=== PATIENT | female | born 1995 | race Caucasian/White ===

== ENCOUNTER 2024-06-21 18:29 | Emergency (ER) | payer BC ==
[~2024-06-21] VITALS: Ht 162.6 cm; Wt 51.4 kg
[2024-06-21] MEDS ORDERED: ALBU8TAB PO (18:49)
[2024-06-21] MEDS ORDERED: ONDA-282 PO (18:49)
[2024-06-21] MEDS ORDERED: DULO1CAP6 PO (18:49)
[2024-06-21] MEDS ORDERED: BUTACAP78 PO (18:49)
[2024-06-21 18:50] VITALS: TEMP 99
[2024-06-21 19:36] LABS: BASO % 0.9 % (0.0-1.0); EOS # 0.1 10^3/uL (0.0-0.5); EOS % 1.6 % (0.0-3.0); HEMATOCRIT 42.9 % (36.0-47.0); HEMOGLOBIN 14.8 g/dl (12.0-15.5); LYMPH # 1.1 10^3/uL (1.5-5.0); LYMPH % 25.9 % (24.0-44.0); MEAN CORPUSCULAR HEMOGLOBIN 31.3 pg (27.0-33.0); MEAN CORPUSCULAR HGB CONC 34.5 g/dl (32.0-36.5); MEAN CORPUSCULAR VOLUME 90.7 fl (80.0-96.0); MONO # 0.6 10^3/uL (0.0-0.8); MONO % 14.1 % (2.0-8.0); NEUTROPHILS # 2.5 10^3/uL (1.5-8.5); NEUTROPHILS % 57.3 % (36.0-66.0); PLATELET COUNT, AUTOMATED 228 10^3/uL (150-450); RED BLOOD COUNT 4.73 10^6/uL (4.00-5.40); WHITE BLOOD COUNT 4.4 10^3/uL (4.0-10.0)
[2024-06-21 20:12] LABS: LIPASE 40 U/L (12-53)
[2024-06-21 20:14] LABS: ALBUMIN 3.9 G/DL (3.2-5.2); ALKALINE PHOSPHATASE 72 U/L (35-104); ALT/SGPT 28 U/L (7.0-40); AST/SGOT 17 U/L (<34); BILIRUBIN,DIRECT 0.2 MG/DL (<0.4); BILIRUBIN,TOTAL 0.5 MG/DL (0.3-1.2); BLOOD UREA NITROGEN 12 MG/DL (9-23); CARBON DIOXIDE LEVEL 30 MMOL/L (20-31); CHLORIDE LEVEL 107 MMOL/L (98-107); CREATININE FOR GFR 0.57 MG/DL (0.55-1.30); GLOMERULAR FILTRATION RATE > 90.0 (>60); GLUCOSE, FASTING 88 MG/DL (60-100); POTASSIUM SERUM 4.3 MMOL/L (3.5-5.1); SODIUM LEVEL 143 MMOL/L (136-145); TOTAL PROTEIN 7.1 G/DL (5.7-8.2)
[2024-06-21 20:15] LABS: HCG, SERUM QUALITATIVE NEGATIVE (NEGATIVE)
[2024-06-21] MEDS ORDERED: ISOVUE-370 76% 100ML VIAL As Ordered ONE (21:03)
[2024-06-21] MEDS: KETOROLAC 30 MG/ML 1ML VIAL IV ONE (21:31)
[2024-06-21] MEDS: ONDANSETRON 4MG 2ML VIAL IV ONE (21:31)
[2024-06-21] MEDS: FAMOTIDINE 20MG/2ML VIAL IVP ONE (21:31)
[2024-06-21 21:44] LABS: KETONE, URINE AUTO RFX NEGATIVE (NEGATIVE); LEUKOCYTE ESTERASE UR AUTO RFX NEGATIVE (NEGATIVE); NITRITE, URINE AUTO RFX NEGATIVE (NEGATIVE); RBC, URINE AUTO RFX 1 /HPF (0-3); SQUAM EPITHELIAL CELL UR AURFX 1 /HPF (0-6); WBC, URINE AUTO RFX 0 /HPF (0-3)
[2024-06-21] MEDS: NS (Normal Saline) 0.9% 1,000 ML IV ONE (21:45)
[2024-06-21 22:30] VITALS: BP 107/68; O2SAT 100
== END 2024-06-21 22:42 | disposition home or self-care (01) ==
LOC: M ED 18:29
DX: A09 Infectious gastroenteritis and colitis, unspecified (principal); J45.909 Unspecified asthma, uncomplicated; Z88.8 Allergy status to other drugs, medicaments and biological substances; Z79.51 Long term (current) use of inhaled steroids; Z79.899 Other long term (current) drug therapy
CPT/HCPCS: 71045; 74177; 76705; 80048; 80076; 81001; 83605; 83690; 84703; 85025; 93041; 96374; 99284; J1308; J1885; J2405; Q9967